=== PATIENT | male | born 1965 | race Caucasian/White ===

== ENCOUNTER 2020-02-15 17:09 | Inpatient (IN) | payer OTHER ==
[~2020-02-15] VITALS: Ht 180.3 cm; Wt 122.0 kg
[2020-02-15 22:20] VITALS: BP 109/76
[2020-02-15] MEDS ORDERED: METHADONE10 MG/1 M2 PO (23:06)
[2020-02-15] MEDS ORDERED: VITAMIN D35000 UNI2 PO (23:08)
[2020-02-15] MEDS ORDERED: DIVALPROEX SOD500 M1 PO ×2 (23:10→23:12)
[2020-02-15] MEDS ORDERED: LOPRESSOR50 MG PO ×2 (23:13)
[2020-02-15] MEDS ORDERED: LIPITOR 20 MG T20 M1 PO (23:14)
[2020-02-15] MEDS ORDERED: BENZTROPINE MES1 MG PO (23:15)
[2020-02-15] MEDS ORDERED: ESCITALOPRA5 MG/5 ML PO (23:16)
[2020-02-15] MEDS ORDERED: ABILIFY15 MG PO (23:16)
[2020-02-15] MEDS ORDERED: CARISOPRODOL350 MG PO (23:17)
[2020-02-15] MEDS ORDERED: LOTREL 5-40 MG1 EACH PO (23:18)
[2020-02-15] MEDS ORDERED: CLONIDINE HCL0.3 M3 PO (23:19)
[2020-02-15] MEDS ORDERED: DIAZEPAM 5 MG5 M1 PO ×2 (23:21→23:22)
[2020-02-15] MEDS ORDERED: INSULIN LI100 UNIT/2 SUBQ (23:26)
[2020-02-15] MEDS ORDERED: HYDRALAZINE 5050 MG PO (23:28)
[2020-02-15] MEDS ORDERED: CULTURELLE KID1 EAC1 PO (23:28)
[2020-02-15] MEDS ORDERED: MULTI VITAMIN1 EACH PO (23:29)
[2020-02-15] MEDS ORDERED: VITCB500GO PO (23:30)
[2020-02-15] MEDS ORDERED: DEPAKOTE ER500 M1 PO (23:31)
[2020-02-15] MEDS ORDERED: NICOTINE TRANSD14 M1 PO (23:32)
[2020-02-15] MEDS ORDERED: NICOTINE PATCH1 EAC2 TRANSDERM (23:33)
--- NOTE | 2020-02-16 00:26 | NUR ---
Admission assessment and history is completed. He was medicated with ivp morphine for c/o pain to his left hand. Up ad divina in his room.
--- NOTE | 2020-02-16 02:22 | NUR ---
Pt. was direct admit from [facility] and arrived via ems on a stretcher. He is alert and oriented. Pt. was admitted for left hand cellulitis. He was oriented to staff and room.
[2020-02-16 03:50] VITALS: BP 123/88
--- NOTE | 2020-02-16 05:10 | NUR ---
0300 ASSUMED CARE OF PT AND ASSESSMENT COMPLETES, LHAND WITH PEELING AND SWELLING, PT UNABLE TO STRAIGHTEN FINGERS, PT STATES SWELLING IS MUCH BETTER THAN IT HAD BEEN IN THE PAST AND THAT HIS FEELING IS COMING BACK TO THE PALM OF HIS HAND, IV INFUSING TO R HAND WITHOUT DIFFICULTY, WILL CALL CONSULTS THIS AM, PT HAS BEEN NPO SINCE MIDNIGHT PER ORDER, WILL CONTINUE TO MONITOR.
[2020-02-16 05:16] LABS: HEMATOCRIT 42.7 % (42.0-52.0); HEMOGLOBIN 14.1 gm/dL (14.0-18.0); MCH 29.1 pg (26.0-34.0); RBC 4.85 mil/uL (4.50-6.00); WBC 8.7 thou/uL (4.0-11.0)
[2020-02-16 05:23] LABS: PROTIME 9.7 Seconds (9.3-11.4)
[2020-02-16 05:40] LABS: ALBUMIN 2.9 g/dL (3.4-5.0); CREATININE 0.8 mg/dL (0.7-1.3); POTASSIUM 4.1 mmol/L (3.5-5.1); TOTAL BILIRUBIN 0.2 mg/dL (<0.1-1.0); TOTAL PROTEIN 6.3 g/dL (6.4-8.2)
[2020-02-16] MEDS ORDERED: METHADONE HCL 110 MG PO (06:31)
[2020-02-16] MEDS ORDERED: NORVASC10 MG PO (06:32)
[2020-02-16] MEDS ORDERED: TEFLARO 600 MG600 MG IVPB (06:48)
[2020-02-16] MEDS ORDERED: ZYVOX600 MG PO (06:50)
[2020-02-16] MEDS ORDERED: MORPHINE 44 MG/1 ML IV (06:55)
[2020-02-16 07:49] VITALS: BP 128/82
--- NOTE | 2020-02-16 14:41 | NUR ---
PT ADMITTED RELATED TO LEFT HAND CELLULITIS. CM REVIEWED CHART AND SPOKE WITH CARE TEAM. CM CALLED AND SPOKE WITH PT THIS DAY. HE APPEARED TO BE A&O X4. CM ROLE INTRODUCED. HE INDICATED THAT HE RESIDES ALONE IN AN APARTMENT IN [place], [place]. HE INDICATED THAT THERE IS ELEVATOR ASSESS. 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 PT STATED THAT HE HAS A 4WW HE USES FOR LONG DISTANCES. PT INIDCATED THAT HE HAS A THERAPIST SEEING HIM THROUGH [facility] [place]. HE INDICATED THAT HIS PCP IS DR. CRYSTAL BOWERS. PT INDICATED HE ANTIPATES RETURNING HOME ONCE MEDICALLY STABLE BUT THAT HE WILL NEED TRANSPORT HOME. CM TO FOLLOW INDICATED WITH DC PLANNING.
[2020-02-16 19:06] VITALS: BP 156/93
[2020-02-16 22:00] VITALS: BP 147/87
--- NOTE | 2020-02-16 23:32 | NUR ---
1900 ASSUMED CARE OF PT AFTER BEDSIDE REPORT, 2100 ASSESSMENT COMPLETED LEFT CAND CONTINUES TO BE SWOLLEN AND IS PEELING, PT UNABLE TO EXTEND FINGERS. OTHERWISE PT IS AWAKE ALERT AND ORIENTED ANSWERING QUESTIONS APPROPRITAELY, PT REFUSES HOSPITAL GOWN OR SCDS, AND IS AMBULATING IN ROOM, IV INFUSING WITHOUT DIFFICULTY, [address] ORDER, PT RESTING IN BED WITH NO COMPLAINTS AT THIS TIME, WILL CONTINUE TO MONITOR 2330 PT PLACED ON CONTACT PRECAUTIONS FOR POSSIBLE MRSA, WILL COLLECT SWAB AND SEND TO LAB FOR R/O.
[2020-02-17 03:55] VITALS: BP 152/90
[2020-02-17 07:47] VITALS: BP 151/86
--- NOTE | 2020-02-17 11:29 | HC ---
[facility] [place] [address] CONSULTATION Name: MITCH ESCOBAR Room #: 444-P ADM IN M.R.#: [id number] Admission: 02/15/20 Attend Phys: John Segura MD Discharge: Date of : 63 Report #: [id number] THIS REPORT FOR: cc: [facility] - Family physician unknown [facility] - Family physician unknown Haylee Ball MD ~ CC: CRYSTAL KAUR unknown ORTHOPEDIC CONSULTATION NOTE HISTORY OF PRESENT ILLNESS: The patient is a 54-year-old right hand dominant male who reports approximately 8 days ago waking up with significant pain in the left hand. He noticed a quick onset of blisters, swelling and pain. He thinks he might have gotten bit by a spider. His symptoms worsened. He was subsequently admitted to [facility]. He was placed on IV antibiotics. He reports the swelling was 4 times what it is now. It has significantly decreased as well as the pain is decreased. Orthopedics was consulted there and they reported being uncomfortable with treating him and he was transferred here. He reports numbness from his elbow that has improved, but not resolved. He reports the blister has significantly improved. PAST MEDICAL HISTORY: Significant for chronic back and hip pain after a fall down 2 flights. Diabetes, hypertension, gastroesophageal reflux disease, manic, anxiety, depression. HOME MEDICATIONS: Include methadone, cholecalciferol, divalproex, metoprolol, atorvastatin, benztropine, Abilify, escitalopram, carisoprodol, amlodipine, clonidine, diazepam, lactobacillus, hydralazine, multivitamin, vitamin C, divalproex and a nicotine patch. PAST SURGICAL HISTORY: Left forearm trauma with rebar status post surgery, lumbar decompression. SOCIAL HISTORY: Smokes about half pack of cigarettes every day. Denies alcohol use. 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 ALLERGIES: PROCHLORPERAZINE, THORAZINE. REVIEW OF SYSTEMS: MUSCULOSKELETAL: Denies any other areas of swelling in his extremities. NEUROLOGIC: See HPI. LABORATORY STUDIES: Show a white blood cell count of 8.7, hemoglobin 14.1, hematocrit 42.7, platelet count 289. INR is 1. Chemistry is grossly normal. [address] [address] CONSULTATION Name: MITCH ESCOBAR Room #: 444-P [facility] IN ..#: [id number] Admission: 02/15/20 Attend Phys: John Segura MD Discharge: Date of : 63 Report #: [id number] PHYSICAL EXAMINATION: GENERAL: The patient is alert and oriented. He interacts appropriately. He is a well-developed, well-nourished male in mild amount of distress. VITAL SIGNS: Most recent vital signs show temperature of 36.7, heart rate 83, respiratory rate 17, blood pressure 128/82 and pulse oximetry is 95% on room air. EXTREMITIES: Examination of his left upper extremity, he reports subjective decreased sensation to the tips. He has brisk capillary refill. There is no erythema. There is a healing bullae. There is no drainage. There is diffuse edema predominantly in the dorsal and palmar sides of the hand. He holds his fingers in a flexed position. There is diffuse tenderness dorsally at the distal forearm and dorsal hand as well as volar hand. This is mild to moderate. There is no pain. There is no tenderness in the wrist joint. No pain with wrist motion. There is no pain with any specific joint motion. His FDPs are all intact. His FPL is intact. I do get a hint that his extensor tendons are intact with tenodesis. However, he reports an inability to actively extend them and this was confirmed on my physical examination. Again there is no erythema that I am noting. IMPRESSION AND PLAN: Left hand cellulitis, significant stiffness and loss of extension. We discussed the diagnosis as well as treatment options. We discussed that most likely this is due to edema and inflammation around the tendons. I feel it is unlikely that his tendons have been ruptured and at this point I do not feel that he has an abscess that needs to be surgically drained. I will order x-rays as I do not have any imaging that I can look at myself. There is an MRI report, which shows tenosynovitis mostly dorsally. No abscess or osteomyelitis. This is just per report only. I understand that Infectious Disease will see him and most likely start him back on some IV antibiotics. I will continue to see him. Questions were encouraged and answered to the best of my ability. <ELECTRONICALLY SIGNED> By: Haylee Ball MD 02/17/20 1129 [id number] Haylee Ball MD /nt
--- NOTE | 2020-02-17 14:22 | HC ---
[facility] [place] [address] CONSULTATION Name: MITCH ESCOBAR Room #: 444-P ADM IN M.R.#: [id number] Admission: 02/15/20 Attend Phys: John Segura MD Discharge: Date of : 63 Report #: [id number] THIS REPORT FOR: cc: [facility] - Family physician unknown [facility] - Family physician unknown Lewis Caraballo MD ~ CC: CRYSTAL Segura [facility] unknown DATE OF SERVICE: 02/16/2020 CHIEF COMPLAINT: Right arm ulcerations. HISTORY OF PRESENT ILLNESS: This 54-year-old male patient with a history of prior left arm trauma, who was admitted to [facility] for progressive cellulitis of his left hand and subsequently to involving his left forearm. He developed initial symptoms on 02/07/2020, it has increased, he has been admitted, has been on intravenous antibiotic therapy and things have improved. His arm remains quite swollen; however, he is also to be seen by Orthopedics while here. PAST MEDICAL HISTORY: Positive for prediabetes, hypertension, GERD, previous surgical repair to forearm trauma, lumbar surgery, bipolar disorder, anxiety, depression, hyperlipidemia, chronic back pain. SOCIAL HISTORY: Positive for smoking cigarettes daily. No history of alcohol use. FAMILY HISTORY: Noncontributory. MEDICATIONS: Include vitamin D3, divalproex, Lopressor, Lipitor, Cogentin, Abilify, escitalopram, carisoprodol, Lotrel, clonidine, diazepam, hydralazine, vitamin C, Depakote. ALLERGIES: THORAZINE, PROCHLORPERAZINE. REVIEW OF SYSTEMS: CONSTITUTIONAL: The patient denies fever, chills or weight loss. NEUROLOGICAL: The patient denies focal weakness, numbness or tingling. EYES: The patient denies visual changes, redness, or drainage. ENT: The patient denies earache, nasal drainage, or sore throat. CARDIOVASCULAR: The patient denies chest pain, palpitations or diaphoresis. PULMONARY: The patient denies cough or shortness of breath. GASTROINTESTINAL: The patient denies nausea, vomiting, diarrhea or abdominal pain. [facility] [address] [place] [address] CONSULTATION Name: LUZMITCH Yunior Room #: 444-P [facility] IN M.R.#: [id number] Admission: 02/15/20 Attend Phys: John Segura MD Discharge: Date of : 63 Report #: [id number] ORTHOPEDIC: The patient does complain of pain and swelling of his left arm, although states that has improved. Other systems in a 14-point review of systems are negative. PHYSICAL EXAMINATION: VITAL SIGNS: At this time include temperature 36.7, pulse 83, respiratory rate 17, and blood pressure 128/82. GENERAL: This is a chronically ill-appearing male patient who appears to be in minimal distress. HEENT: Head normocephalic. Nose and throat are clear. NECK: Supple. ABDOMEN: Soft. Bowel sounds present. EXTREMITIES: Examination of the extremities demonstrate significant swelling and tenderness to the left hand and forearm evidence of old blisters. Some skin is peeling off few small cracks noted in the skin along the arm, but is not overtly fluctuant, and the compartments feel soft to palpation. LABORATORY DATA: White blood cell count 8.7, hemoglobin of 14.1. Sodium 137, potassium 4.1, chloride 102, CO2 28, BUN 13, creatinine 0.8, glucose 121. CPK is 443, total protein 6.3, albumin 2.9. CLINICAL IMPRESSION: 1. Cellulitis of the left hand and forearm. Etiology unclear. Consider possible insect bite. 2. Prediabetes with hyperglycemia. 3. Bipolar disorder. 4. Mild protein-calorie malnutrition. RECOMMENDATIONS: At this point in time, we will recommend topical Silvadene, Xeroform gauze with a lightly applied Kerlix daily to try to soften some of the crusting on the forearm. Recommend continuation of intravenous antibiotic therapy. Orthopedic evaluation. The patient is agreeable with the current plan. I appreciate being asked to see him in consultation. <ELECTRONICALLY SIGNED> By: Lewis Caraballo MD 02/17/20 1422 [id number] Lewis Caraballo MD /nt
[2020-02-17 15:59] VITALS: BP 121/56
--- NOTE | 2020-02-17 17:54 | HC ---
[facility] [place] [address] CONSULTATION Name: MITCH ESCOBAR Room #: 404-P [facility] IN M.R.#: [id number] Admission: 02/15/20 Attend Phys: John Segura MD Discharge: Date of : 63 Report #: [id number] THIS REPORT FOR: cc: [facility] - Family physician unknown [facility] - Family physician unknown Jeremy Logan MD ~ CC: CRYSTAL Segura [facility] unknown DATE OF SERVICE: 02/16/2020 INFECTIOUS DISEASES CONSULTATION REASON FOR CONSULTATION: I was asked to evaluate concerning left upper extremity soft tissue infection. HISTORY OF PRESENT ILLNESS: The patient is a 54-year-old diabetic, tobacco user, developed acute onset of left forearm, wrist and hand pain and swelling on 02/07/2020. No reported trauma. The patient feels he was bitten by an insect, but this has not been substantiated. Admitted to [facility] on 02/08/2020. Placed on IV antibiotic therapy. Blood cultures remain negative. He had a fair amount of blistering to the soft tissues. This has improved. He was referred to [facility] in hospital to hospital transfer in order for him to be evaluated by Hand Surgery. He states that the pain and swelling has improved over the last several days. Transfers on Zyvox and Teflaro. He has had previous trauma to the left arm. This was surgically repaired several years ago. No history of neuropathy. No other vascular complaints. REVIEW OF SYSTEMS: A 14-point review of systems was negative other than what has been described above. ALLERGIES: THORAZINE, PROCHLORPERAZINE, COMPAZINE. MEDICATIONS: As noted on his MAR, which were reviewed. PAST MEDICAL HISTORY: Diabetes, hypertension, gastroesophageal reflux, left forearm trauma, lumbar back surgery after a trauma, manic depression, anxiety, hyperlipidemia, chronic pain syndrome with need for methadone. FAMILY HISTORY: Coronary artery disease. SOCIAL HISTORY: Smoker of cigarettes. No significant alcohol intake. PHYSICAL EXAMINATION: [facility] [address] [place] [address] CONSULTATION Name: MITCH ESCOBAR Room #: 404-P [facility] IN ..#: [id number] Admission: 02/15/20 Attend Phys: John Segura MD Discharge: Date of : 63 Report #: [id number] VITAL SIGNS: Afebrile and hemodynamically stable. Sitting up to the side of the bed. He is obese. NEUROLOGIC: Left arm had 2+ swelling from the forearm to the hand. He had limited range of motion in the wrist and his fingers. He had significant tenderness predominantly over the dorsum of his hand. He was not able to extend his fingers completely. His lens blank gauger was reduced as well. He had dried blistering of the skin including both hand and forearm. No fluctuance. Pulses in the wrist were normal. Capillary refill was normal. Sensation in his fingers was reduced to fine touch -1 compared to the right side. No axillary adenopathy. EYES: Without scleral icterus. MOUTH: Without mucositis. NECK: Supple. LUNGS: Clear to auscultation. HEART: Regular, without murmur, gallop or rub. ABDOMEN: Soft and nontender with no hepatosplenomegaly or mass appreciated. EXTREMITIES: Other extremities were without cyanosis. Did have 2+ edema in his lower extremities. LABORATORY STUDIES: Reviewed. MICROBIOLOGY: Reviewed. Outside MRI scan notes cellulitis without abscess. Does have tenosynovitis of the distal forearm and extensor tendons. X-rays of the hand reviewed. IMPRESSION: A 54-year-old diabetic with soft tissue infection and tenosynovitis extensor tendons, left wrist. Specific etiology is yet to be determined. No reported trauma. Indeterminate organism, but I suspect bacterial in etiology. Group A Streptococcus would be most likely given this scenario of the extensive nature of the infection with blistering. No evidence of septic arthritis or osteomyelitis. Associated diseases include diabetes, anxiety, depression, tobacco use and chronic pain syndrome. RECOMMENDATIONS: We will continue IV antibiotic therapy with Zyvox and Zosyn, pending further studies. Screen for MRSA and although unlikely to be of benefit, we will screen ASO titer. Continue local wound care. Orthopedic Surgery followup. <ELECTRONICALLY SIGNED> By: Jeremy Logan MD 02/17/20 1754 [id number] 0024 Jeremy Logan MD /nt
[2020-02-17 17:57] VITALS: BP 137/79
--- NOTE | 2020-02-17 18:40 | NUR ---
ASSUMED PT CARE AT 7AM.ASSESSMENT COMPLETED.VSS.PT IN AND OUT OF BED BYSELF TO THE BR AND HALLWAYS.PT TOLERATED MEDS AND DIET.DRSG CHANGE DONE TO LEFT HAND ORDERED.PT C/O LEFT HAND PAIN RATED 7/10.MS IVP GIVEN WITH RELIEF.LATER THIS AFTERNOON,PT WAS UPSET WHEN TOLD ABOUT MOVING TO [facility] AND WANTED TO LEAVE AMA.DR HUDSON NOTIFIED AND SAID IT'S OKAY FOR PT TO EITHER MOVE TO [facility] OR LEAVE AMA.PT FINALLY DECIDED TO MOVE TO [facility] AROUND 174 WITH ALL HIS PERSONAL BELONGINGS.
[2020-02-17 19:39] VITALS: BP 146/86
--- NOTE | 2020-02-17 19:46 | NUR ---
PATIENT TRANSFERRED FROM [address] [place] [address], PATIENT UP AD LALY. PATIENT C/O PAIN WITH LEFT ARM, THIS RN GAVE MORPHINE 4 MG IV, WITH PARTIAL RELIEF. PATIENT HAS RIGHT HAND IV. LEFT ARM UNWRAPPED BY THE PATIENT, NIGHTSHIFT WILL REWRAP. WILL CONTINUE TO MONITOR.
--- NOTE | 2020-02-18 05:33 | NUR ---
PATIENT ALERT AND ORIENTED X4. UP ADLIB IN ROOM. IV ABX INFUSED W/O COMPLICATION. PATIENT COOPERATIVE WITH CARE. BS MONITORED PER ORDER. PATIENT HAD REMOVED DRESSING TO LEFT HAND, THIS NURSE REPLACED PER ORDER. EDEMA AND SCABS TO RIGHT HAND, WRIST AND FOREARM. MEDICATED FOR PAIN WITH GOOD RESULTS. RESTING QUIETLY. WILL MONITOR.
[2020-02-18 08:31] VITALS: BP 133/86
--- NOTE | 2020-02-18 18:14 | NUR ---
PT IS AOX4, VSS, UP AD LALY IN ROOM. DRESSING CHANGED ON LEFT HAND/FA. PAIN IN LEFT HAND CONTROLLED WITH PRN AND SCHEDULED PAIN ANALGESIC. PT IV IS PATENT RIGHT HAND, ANTIBIOTIC'S COMPLETED ORDERED. CALL LIGHT/PERSONAL ITEMS IN REACH, NO C/O OF N/V. WILL CONTINUE TO MONITOR.
[2020-02-18 20:03] VITALS: BP 132/88
--- NOTE | 2020-02-19 04:02 | NUR ---
PATIENT ALERT AND ORIENTED X4. UP ADLIB IN ROOM. C/O PAIN TO RIGHT HAND, MEDICATED X2. BS MONITORED PER ORDER. IV PATENT FOR ABX. PATIENT REMOVED DRESSING, STATED HE WAS EXERCISING HIS HAND. THIS NURSE REPLACED PER ORDER. SLEEPING OFF AND ON DURING THE NIGHT. WILL MONITOR.
[2020-02-19 07:10] VITALS: BP 132/89
--- NOTE | 2020-02-19 10:17 | NUR ---
PT IS AOX4, VSS, PAIN IN LEFT HAND CONTROLLED WITH PRN/SCHEDULED PAIN ANALGESIC. PT HAS HAND ELEVATED ON PILLOW. RIGHT HAND IV PATENT WITH ANTIBIOTIC ORDERS. PT UP AD LALY, TOOK A SHOWER, AND TOLERATING DIET W/O NAUSEA. PT DRESSING REMAIN CDI. CALL LIGHT IN REACH, WILL CONTINUE TO MONITOR.
[2020-02-19 15:20] VITALS: BP 147/90
[2020-02-19 19:30] VITALS: BP 143/86
--- NOTE | 2020-02-20 04:41 | NUR ---
PATIENT ALERT AND ORIENTED X4. UP ADLIB IN ROOM AND HALLWAY. DRESSING TO LEFT HAND AND ARM WAS OFF AT SHIFT CHANGE DR. HENDERSON OBSERVED PROGRESS. THIS NURSE REPLACED PER ORDER. MEDICATED WITH MORPHINE X1 DURING THE NIGHT. PATIENT IS LOOKING FORWARD TO LEAVING TODAY. ANXIOUS DURING THE NIGHT. WILL MONITOR. BS MONITORED PER ORDER.
[2020-02-20 05:11] VITALS: BP 138/83
[2020-02-20 08:10] VITALS: BP 152/104
--- NOTE | 2020-02-20 13:17 | NUR ---
ASSUMED PATIENT CARE AT 0700. PATIENT IS AOX4. PATIENT IS UP AD LALY AND IS ANXIOUSLY AWAITING DISCHARGE. WOUND CARE DONE PER ORDERS. PATIENT C/O PAIN, PRN PAIN MEDS GIVEN.
--- NOTE | 2020-02-20 13:41 | NUR ---
VAT CONSULTED FOR A PIV FOR OUTPT INFUSION ABX FOR TOMORROW HERE AT [facility]. PT CURRENTLY HAS A PATENT PIV AND HAS HAD HIS IV MEDS FOR TODAY. RECOMMENDED PT HAVE NEW PIV STARTED TOMORROW TO ENSURE PATENCY AND LOWER RISK OF INFECTION. VAT IS HERE AT 0900. OUTPT INFUSION IS ABLE TO CONSULT IF THEY HAVE DIFFICULTY.
[2020-02-20 14:15] VITALS: BP 152/104
--- NOTE | 2020-02-20 14:32 | NUR ---
DISCHARGE NOTE: MADDISON received consult to arrange outpatient IV abx: Ertapenem 1 gm daily. Pt to have peripheral IV access. Pt requesting to do outpatient infusion at [facility] in [place] due to location. MADDISON contacted the housecleaner at [facility] and then was forwarded to Avril on unit 1-south (Med/Surg unit). MADDISON faxed clinical info and IV abx orders to [facility] for review. MADDISON followed up with Avril, who states that pt is able to start outpatient infusion tomorrow, 02/20 at 1200. [facility] and go through the COVID-screening and registration. Pt will be taken to the med/surg unit for infusion. Infusion services are available 7 days a week on the med/surg unit. Instructions placed in pt's discharge summary. MADDISON called pt in his room. Pt had already been discharged. MADDISON discussed with pt's nurse, who will contact pt and notify him of the details of his outpatient infusion. MADDISON is available to assist should needs arise.
== END 2020-02-20 14:12 | disposition home or self-care (01) | DRG 603 ==
LOC: 4W 17:09 → 4S 22:27 → 4N 02-17 17:40
PROVIDERS: Nurse Practitioner Family; ADMIT Hospitalist
DX: L03.114 Cellulitis of left upper limb (principal); E44.0 Moderate protein-calorie malnutrition; M65.832 Other synovitis and tenosynovitis, left forearm; Z91.81 History of falling; E11.9 Type 2 diabetes mellitus without complications; I10 Essential (primary) hypertension; K21.9 Gastro-esophageal reflux disease without esophagitis; F31.9 Bipolar disorder, unspecified; F41.9 Anxiety disorder, unspecified; F17.210 Nicotine dependence, cigarettes, uncomplicated; E78.5 Hyperlipidemia, unspecified; M54.9 Dorsalgia, unspecified; G89.4 Chronic pain syndrome; B95.4 Other streptococcus as the cause of diseases classified elsewhere; Z79.899 Other long term (current) drug therapy; Z88.8 Allergy status to other drugs, medicaments and biological substances; Z68.37 Body mass index [BMI] 37.0-37.9, adult; Z71.6 Tobacco abuse counseling; Z82.49 Family history of ischemic heart disease and other diseases of the circulatory system
CPT/HCPCS: 10102; 10790